=== PATIENT | female | born 1970 | race Caucasian/White ===

== ENCOUNTER 2016-03-13 19:31 | Emergency (ER) | payer OTHER ==
[2016-03-13] MEDS ORDERED: OPTIRAY 350 100 ML VIAL HMH IV ONE (19:32)
== END 2016-03-13 23:27 | disposition home or self-care (01) ==
LOC: ER 19:31
DX: R10.31 Right lower quadrant pain (principal); R19.7 Diarrhea, unspecified; N39.0 Urinary tract infection, site not specified; R31.9 Hematuria, unspecified; N94.89 Other specified conditions associated with female genital organs and menstrual cycle
CPT/HCPCS: 36415 ×2; 74177 ×2; 80053 ×2; 81001 ×2; 83630 ×2; 83690 ×2; 84703 ×2; 85025 ×2; 87045 ×2; 87046 ×2; 87088 ×2; 87177 ×2; 87209 ×2; 87449 ×2; 87493 ×2; 87899 ×2; 99284; Q9967